=== PATIENT | female | born 1975 | race Caucasian/White ===

== ENCOUNTER 2017-08-20 12:26 | Emergency (ER) | payer SELFPAY ==
[~2017-08-20] VITALS: Ht 165.1 cm; Wt 65.6 kg
[2017-08-20] MEDS ORDERED: MOTRIN600 MG PO (15:40)
[2017-08-20] MEDS ORDERED: SKELAXIN800 MG PO (15:40)
[2017-08-20 15:48] VITALS: BP 101/54
== END 2017-08-20 16:06 | disposition home or self-care (01) ==
LOC: RME 12:26 → EME 12:26 → RME 16:06
DX: S76.011A Strain of muscle, fascia and tendon of right hip, initial encounter (principal); S60.311A Abrasion of right thumb, initial encounter; S53.402A Unspecified sprain of left elbow, initial encounter; W00.0XXA Fall on same level due to ice and snow, initial encounter; Y93.01 Activity, walking, marching and hiking
CPT/HCPCS: 73080; 73130; 73502; 99281; 99284